=== PATIENT | female | born 1955 | race Caucasian/White ===

== ENCOUNTER → 2016-12-07 | Day surgery (SDC) | payer OTHER ==
[~2016-12-07] MED LIST: ACETAMINOPHEN 1000 MG/100 ML VIAL IV ONE; ASPI325T PO; BALANCED SALT SOLN OPHT IRRIG 15 ML BTL ONE; BUPIVACAINE/EPINEPHRINE 0.5% 50 ML VIAL ONE; DIOV320T PO; Donepezil Hcl PO; FOLI1 PO; GABA300C3 PO; KETOROLAC TROMETHAMINE 30 MG/ML (IVP) VIAL IV PUSH ONE; LACT PO; LACTATED RINGER'S 1000 ML INJ 1,000 ML ONE; LEVO750T33 PO; LIDOCAINE 1%/EPINEPHrine 1:100,000 SOLN 20 ML VIAL ONE; METO25 PO; MIDAZOLAM HCL 2 MG/2 ML VIAL ONE; MILKSUS5 PO; NEOMYCIN/POLYMYXIN/BACITRACIN OINT 15 GM TUBE ONE; NEOMYCIN/POLYMYXIN/HYDROCORT OTIC SUSP 10 ML BTL ONE; NOVOLOGP2 SQ; ONDANSETRON HCL 4 MG/2 ML VIAL IV PUSH ONE; PLAV75TA PO; PROPOFOL 100 MG/10 ML INJ IV ONE; STRETAB4 PO; THERM PO; THIA100T PO; ceFAZolin INJ 1,000 MG VIAL ONE
--- NOTE | 2016-12-07 14:49 | TN ---
cc: BIENVENIDO JUAREZ M.D. DATE OF SURGERY: 12/07/2016 PREOPERATIVE DIAGNOSIS Biopsy of basal cell carcinoma located on the left nasal dorsum/tip. Basal cell carcinoma located on the left forehead, including the lesion, a defect of 1.5 x 2 cm. It was closed with intermediate repair of 3-0 Monocryl suture and 3-0 Prolene. PROCEDURE 1. Wide local excision resulting in a full-thickness defect of 4 x 3.5 centimeter. This required a tissue rearrangement flap reconstruction including the following: For a secondary defect of 5 x 7 cm including a mucosal closure for a full-thickness defect of about 2 x 1 cm. 2. Left posterior conchal graft of 3.5 x 0.5 cm to support the ala and the tip. 3. Nasolabial flap reconstruction for a defect of 3.5 x 4 cm. Again the secondary defect is 7 x 4 cm. SURGEON Bienvenido Juarez MD, FACS ANESTHESIA LMA general. ESTIMATED BLOOD LOSS Minimal. SPECIMEN Frozen section was reported as a full-thickness including the mucosal which was excised anyway as a full-thickness but the peripheral margins were negative. PROCEDURE She was properly consented, marked, properly anesthetized. The skin was sterilized with Betadine solution and sterile draping applied. Utilizing a 15 blade the excision was carried out of this defect and sent to pathology for frozen section with a 12 o'clock suture and it showed that the full-thickness lesion was contained in it, however, the peripheral margins were negative. A conchal cartilage graft was harvested from the left ear dolores of 3.5 x 0.5 centimeter. The nasolabial fold was properly elevated after a template that was obtained from the defect. I proceeded and performed the proper relocation of the conchal graft into the nasal ala and tip and then the nasolabial fold covered the area. The full-thickness defect of the mucosa was closed by approximating the mucosa after dissecting that into the septal as well as the septal mucosa, brought it out and covered the defect. Again, the defect was about 2 x 1 cm. I utilized 5-0 Chromic suture to do so. To secure the cartilage graft I utilized 3-0 Monocryl suture as well as to secure the nasolabial flap. The closure of the defect of the ear was closed utilizing 3-0 Monocryl suture and a locking running 3-0 Prolene suture. Basal cell carcinoma located on the left forehead, including the lesion, a defect of 1.5 x 2 cm. It was closed with intermediate repair of 3-0 Monocryl suture and 3-0 Prolene. After this good viability of all the tissue was noted at the end of the case. Absorbent dressing was applied including bacitracin ointment. Overall the patient tolerated the procedure well. She was awakened, extubated in the operating room and transferred back to the postanesthesia care unit in stable condition. No complications were appreciated. The patient tolerated the procedure fairly well. MD TONEY Zuluaga/ALDA /1:53 PM /2:31 PM JO
== END | disposition home or self-care (01) ==
LOC: ESDC 09:42
PROVIDERS: ATTEND Plastic Surgery
DX: C44.311 Basal cell carcinoma of skin of nose (principal); C44.319 Basal cell carcinoma of skin of other parts of face
CPT/HCPCS: 00120; 00300; 11642; 12031; 14061; 21235; 88305; 88331; J0131; J0690; J1885; J2250; J2405; J3010; J7120